=== PATIENT | male | born 1980 | race Caucasian/White ===

== ENCOUNTER 2016-06-19 11:42 | Emergency (ER) | payer MEDICAID | END 2016-06-19 13:39 | disposition home or self-care (01) | LOC: D.ER 11:42 | DX: J01.90 Acute sinusitis, unspecified (principal); J30.2 Other seasonal allergic rhinitis; F17.200 Nicotine dependence, unspecified, uncomplicated ==

== ENCOUNTER 2016-06-27 16:55 | Emergency (ER) | payer MEDICAID | END 2016-06-27 20:16 | disposition home or self-care (01) | LOC: D.ER 16:55 | DX: S39.012A Strain of muscle, fascia and tendon of lower back, initial encounter (principal); W19.XXXA Unspecified fall, initial encounter; Y93.89 Activity, other specified; Y92.511 Restaurant or cafe as the place of occurrence of the external cause; F17.200 Nicotine dependence, unspecified, uncomplicated ==

== ENCOUNTER 2018-02-11 11:38 | Emergency (ER) | payer BC ==
[~2018-02-11] VITALS: Ht 180.3 cm; Wt 111.4 kg
[2018-02-11 11:47] VITALS: BP 134/68; Ht 180.3 cm; Wt 111.4 kg
[2018-02-11] MEDS ORDERED: OMNICEF300 MG PO (13:02)
[2018-02-11] MEDS ORDERED: PHENERGAN DM SYR5 ML PO (13:02)
== END 2018-02-11 13:29 | disposition home or self-care (01) ==
LOC: D.ER 11:38
DX: M54.5 Low back pain (principal); M25.552 Pain in left hip; J06.9 Acute upper respiratory infection, unspecified; R10.2 Pelvic and perineal pain; W10.9XXA Fall (on) (from) unspecified stairs and steps, initial encounter; Y93.89 Activity, other specified; Y92.89 Other specified places as the place of occurrence of the external cause

== ENCOUNTER 2018-02-18 17:39 | Emergency (ER) | payer BC ==
[~2018-02-18] VITALS: Ht 180.3 cm; Wt 102.3 kg
[~2018-02-18 17:39] MED LIST: OMNICEF300 MG PO; PHENERGAN DM SYR5 ML PO
[2018-02-18 17:41] VITALS: Ht 180.3 cm; Wt 102.3 kg
[2018-02-18] MEDS ORDERED: AMBIEN10 MG PO (17:45)
[2018-02-18 18:13] LABS: BASOPHILS 0.6 % (0-2); EOSINOPHILS 3.7 % (0-7); HEMATOCRIT 42.4 % (42.0-54.0); IMMATURE GRANULOCYTES 0.2 % (0-5); LYMPHOCYTES 24.5 % (15-50); MCHC 35.4 g/dL (31.0-37.0); MCV 93.2 fL (80.0-100.0); MEAN PLATELET VOLUME 9.7 fL (7.4-10.4); MONOCYTES 5.3 % (2-11); NEUTROPHILS 65.7 % (40-80); PLATELET COUNT 305 10x3/uL (130-400); RBC 4.55 10x6/uL (4.20-6.10); WBC 10.4 10x3/uL (4.8-10.8)
[2018-02-18 18:36] LABS: ALBUMIN 4.1 g/dL (3.4-5.0); ALKALINE PHOSPHATASE 55 U/L (46-116); BILIRUBIN - TOTAL 0.15 mg/dL (0.2-1.3); CALC OSMOLALITY 275 mosm/kg (275-300); CALCIUM 8.1 mg/dL (8.5-10.1); CARBON DIOXIDE 18.4 mmol/L (21.0-32.0); CHLORIDE - SERUM 105 mmol/L (98-107); CREATININE - SERUM 0.8 mg/dL (0.6-1.3); GLUCOSE 137 mg/dL (74-106); POTASSIUM - SERUM 4.4 mmol/L (3.5-5.1); PROTEIN - SERUM 7.3 g/dL (6.4-8.2); SODIUM 137 mmol/L (136-145); UREA NITROGEN 12 mg/dL (7-18); eGFR NON AFRICAN AMERICAN > 90 mL/min (90-120)
[2018-02-18 18:39] LABS: ALT (SGPT) 104 U/L (10-68)
[2018-02-18 18:56] LABS: UDS - AMPHET NEGATIVE QUAL (NEGATIVE); UDS - BARB NEGATIVE QUAL (NEGATIVE); UDS - BENZO NEGATIVE QUAL (NEGATIVE); UDS - COCAINE NEGATIVE QUAL (NEGATIVE); UDS - OPIATE NEGATIVE QUAL (NEGATIVE); UDS - PCP NEGATIVE QUAL (NEGATIVE); UDS - THC NEGATIVE QUAL (NEGATIVE)
[2018-02-18 19:03] LABS: APPEARANCE CLEAR (CLEAR); BILIRUBIN NEGATIVE (NEGATIVE); COLOR YELLOW (YELLOW); GLUCOSE NEGATIVE (NEGATIVE); KETONE NEGATIVE (NEGATIVE); NITRITE NEGATIVE (NEGATIVE); PROTEIN NEGATIVE (NEGATIVE); SPECIFIC GRAVITY 1.015 (1.005-1.020); UROBILINOGEN NORMAL (NORMAL)
[2018-02-19 06:22] VITALS: BP 134/87
== END 2018-02-19 06:23 ==
LOC: D.ER 17:39
PROVIDERS: Family Medicine
DX: T42.6X2A Poisoning by other antiepileptic and sedative-hypnotic drugs, intentional self-harm, initial encounter (principal); Y92.019 Unspecified place in single-family (private) house as the place of occurrence of the external cause; F17.200 Nicotine dependence, unspecified, uncomplicated